=== PATIENT | female | born 1980 | race Caucasian/White ===

== ENCOUNTER 2023-02-20 21:55 | Emergency (ER) | payer BC ==
[2023-02-20] MEDS ORDERED: LIDOCAINE HCL/EPINEPHRINE 20 ML MDV ONE (22:14)
--- NOTE | 2023-02-20 23:28 | EDPHYS ---
Physician Documentation [facility] Name: Teodora Armstrong Age: 42 yrs Sex: Female : 1980 Arrival Date: 02/20/2023 Time: 21:55 Bed 13 Private MD: ED Physician Burton Eastman HPI: 02/20 23:37 This 42 yrs old Female presents to ER via Ambulatory with complaints of head injury. kb 23:37 The patient or guardian reports a laceration, 8 cm(s). The complaints affect the kb occipital area. Context of injury: The problem was sustained at home, resulted from a fall. Onset: The symptoms/episode began/occurred just prior to arrival. Associated signs and symptoms: Loss of consciousness: This patient did not experience any loss of consciousness. Pertinent positives: patient admits to or smells of alcohol consumption, Pertinent negatives: nausea, vomiting. Severity of symptoms: At their worst the symptoms were moderate, in the emergency department the symptoms are unchanged. The patient has not experienced similar symptoms in the past. The patient has not recently seen a physician. Pt states she went out with her significant other, had a few drinks and was dancing in their RV. States she fell and hit the back of her head on a corner of her desk. Denies loc. . 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 - Social history:: Smoking status: Patient reports the use of cigarette tobacco products, smokes one-half pack cigarettes per day. ROS: 22:02 Constitutional: Negative for fever, chills, and weight loss. kb 22:02 Skin: Positive for laceration(s), of the scalp. 22:02 All other systems are negative. Exam: 22:04 Constitutional: This is a well developed, well nourished patient who is awake, alert, kb and in no acute distress. Head/Face: Normocephalic, atraumatic. Eyes: Pupils equal round and reactive to light, extra-ocular motions intact. Lids and lashes normal. Conjunctiva and sclera are non-icteric and not injected. Cornea within normal limits. Periorbital areas with no swelling, redness, or edema. ENT: Moist Mucous membranes Cardiovascular: Regular rate and rhythm with a normal S1 and S2. No gallops, murmurs, or rubs. No pulse deficits. Respiratory: Respirations even and unlabored. No increased work of breathing. Talking in full sentences MS/ Extremity: Pulses equal, no cyanosis. Neurovascular intact. Full, normal range of motion. Neuro: Awake and alert, GCS 15, oriented to person, place, time, and situation. Moves all extremities. Normal gait. 23:23 Head/face: Noted is no obvious of injury or deformity except a laceration(s), that is kb superficial, 8 cm(s), of the left occipital area and right occipital area. Vital Signs: 22:01 BP 135 / 92; Pulse 109; Resp 15; Temp 97.4(O); Pulse Ox 100% on R/A; Weight 70.31 kg; mb9 Height 5 ft. 8 in. ; Pain 7/10; 23:13 BP 131 / 84; Pulse 91; Resp 16 S; Pulse Ox 100% on R/A; lg3 22:01 Body Mass Index 23.57 (70.31 kg, 172.72 cm) mb9 22:01 Pain Scale: Adult mb9 [place] Coma Score: 22:01 Eye Response: spontaneous(4). Motor Response: obeys commands(6). Verbal Response: mb9 oriented(5). Total: 15. 22:03 Eye Response: spontaneous(4). Motor Response: obeys commands(6). Verbal Response: kb oriented(5). Total: 15. 23:37 Eye Response: spontaneous(4). Motor Response: obeys commands(6). Verbal Response: kb oriented(5). Total: 15. Trauma Score (Adult): 22:01 Eye Response: spontaneous(1); Verbal Response: oriented(1); Motor Response: obeys mb9 commands(2); Systolic BP: > 89 mm Hg(4); Respiratory Rate: 10 to 29 per min(4); [place] Score: 15; Trauma Score: 12 22:01 Eye Response: spontaneous(1); Verbal Response: oriented(1); Motor Response: obeys mb9 commands(2); Systolic BP: > 89 mm Hg(4); Respiratory Rate: 10 to 29 per min(4); [place] Score: 15; Trauma Score: 12 Laceration: 23:23 Wound Repair of 8cm ( 3.1in ) subcutaneous laceration to occipital area. Irregularly kb shaped.. Skin/tissue flap noted.. Distal neuro/vascular/tendon intact. Anesthesia: Wound infiltrated with 10 mls of 1% lidocaine. Wound prep: Extensive cleansing with hibiclenz by me, Wound irrigation with saline by me. Skin closed with 17 1-0 Lee using simple sutures and sterile technique. Patient tolerated well. MDM: 21:57 Patient medically screened. kb 22:03 Differential diagnosis: Contusion of Hematoma on Laceration of Intracranial bleed- kb Concussion cerebral contusion. Data reviewed: vital signs, nurses notes. 23:39 Counseling: I had a detailed discussion with the patient and/or guardian regarding: the kb historical points, exam findings, and any diagnostic results supporting the discharge/admit diagnosis, radiology results, the need for outpatient follow up, a family practitioner, to return to the emergency department if symptoms worsen or persist or if there are any questions or concerns that arise at home. 02/20 21:57 Order name: CT Head C Spine kb 02/20 21:58 Order name: Dressing - Wound; Complete Time: 22:22 kb 02/20 21:58 Order name: Gloves, Sterile; Complete Time: 22:22 kb 02/20 21:58 Order name: Setup Suture Tray; Complete Time: 22:22 kb Administered Medications: 23:54 Drug: Tetanus-Diphtheria Toxoid IM Adult 0.5 ml {Forklift Driver: [place] (BUKA). lg3 Exp: 07/26/2023. Lot #: [id number]. } Route: IM; Site: right deltoid; 23:56 Follow up: Response: (VIS) Vaccine information sheet provided today. Questions and/or lg3 concerns addressed. VIS edition date: Feb 11, 2021.; No adverse reaction 23:56 Follow up: Response: No adverse reaction lg3 23:54 Drug: [place] PO 10 mg-325 mg 1 tabs Route: PO; lg3 23:56 Follow up: Response: No adverse reaction lg3 23:54 Drug: Cephalexin PO 500 mg Route: PO; lg3 23:56 Follow up: Response: No adverse reaction lg3 23:56 Drug: Lidocaine-Epinephrine Infiltration -1%: (1:100,000) 1 vials Volume: 20 ml; Route: lg3 Infiltration; Disposition Summary: 02/20/23 23:28 Discharge Ordered Location: Home kb Condition: Stable kb Diagnosis - Laceration without foreign body of scalp kb - Unspecified injury of head, initial encounter kb Followup: kb - With: Emergency Department - When: As needed - Reason: Worsening of condition Followup: kb - With: Private Physician - When: 2 - 3 days - Reason: Recheck today's complaints, Continuance of care, Re-evaluation by your physician Discharge Instructions: - Discharge Summary Sheet kb - Laceration Care, Adult, [id number] kb - Head Injury, Adult, [id number] kb Forms: - Medication Reconciliation Form kb - Thank You Letter kb - Antibiotic Education kb - Prescription Opioid Use kb - Patient Portal Instructions kb - Leadership Thank You Letter kb Prescriptions: - Cephalexin 500 mg Oral Capsule - take 1 capsule by ORAL route every 8 hours for 10 days; 30 capsule; Refills: 0, kb Product Selection Permitted Signatures: Dispatcher [employer] Jacquelyn Jiang, LUNG PULLER-C LUNG PULLER-Corina Rosario, RN RN lg3 Brandi Nair, RN RN mb9
--- NOTE | 2023-02-20 23:28 | ER ---
Nurse's Notes [facility] Name: Teodora Armstrong Age: 42 yrs Sex: Female : 1980 Arrival Date: 02/20/2023 Time: 21:55 Bed 13 Private MD: Diagnosis: Laceration without foreign body of scalp;Unspecified injury of head, initial encounter Presentation: 02/20 22:01 Chief complaint: Patient states: "I slipped on wet towels and fell and hit the back of mb9 my head on a metal desk." Pt denies LOC and taking blood thinners. Coronavirus screen: Vaccine status: Patient reports receiving the 2nd dose of the covid vaccine. Ebola Screen: No symptoms or risks identified at this time. Initial Sepsis Screen: Does the patient meet any 2 criteria? No. Patient's initial sepsis screen is negative. Does the patient have a suspected source of infection? No. Patient's initial sepsis screen is negative. Risk Assessment: Do you want to hurt yourself or someone else? Patient reports no desire to harm self or others. Onset of symptoms was February 20, 2023. 22:01 Method Of Arrival: Ambulatory mb9 22:01 Acuity: AKIL 3 mb9 Triage Assessment: 22:04 General: Appears uncomfortable, Behavior is calm, cooperative. Pain: Complains of pain mb9 in scalp Pain does not radiate. Pain currently is 7 out of 10 on a pain scale. Quality of pain is described as throbbing, Pain began suddenly, Is continuous. EENT: No signs and/or symptoms were reported regarding the EENT system. Neuro: [place] Agitation-Sedation Scale (RASS): 0 - Alert and Calm Level of Consciousness is awake, alert, obeys commands, Oriented to person, place, time, situation, Appropriate for age Pupils are PERRLA, Reports headache. Cardiovascular: Patient's skin is warm and dry. Respiratory: Airway is patent Respiratory effort is even, unlabored, Respiratory pattern is regular, symmetrical. GI: No signs and/or symptoms were reported involving the gastrointestinal system. : No signs and/or symptoms were reported regarding the genitourinary system. Derm: Skin is pink, warm \\T\\ dry. Musculoskeletal: Range of motion: intact in all extremities. Injury Description: Laceration sustained to scalp is clean, 7.6 to 20 cm long, not bleeding. 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 - Social history:: Smoking status: Patient reports the use of cigarette tobacco products, smokes one-half pack cigarettes per day. Screenin:57 [facility] ED Fall Risk Assessment (Adult) History of falling in the last 3 months, lg3 including since admission Yes- single mechanical fall (1 pt) Confusion or Disorientation No (0 pts) Intoxicated or Sedated Yes (3 pts) Impaired Gait No (0 pts) Mobility Assist Device Used No (0 pt) Altered Elimination No (0 pt) Score/Fall Risk Level 3 or more points = High Risk Oriented to surroundings, Maintained a safe environment, Educated pt \\T\\ family on fall prevention, incl call for assistance when getting out of bed, Provided non-skid footwear, Utilized family, sitter, or virtual electronic specialist as indicated. Abuse screen: Denies threats or abuse. Denies injuries from another. Nutritional screening: No deficits noted. Tuberculosis screening: No symptoms or risk factors identified. Assessment: 22:06 Reassessment: see triage assessment. mb9 22:27 Reassessment: pt taken to CT via wheelchair. mb9 23:13 General: Appears in no apparent distress. comfortable, Behavior is calm, cooperative. lg3 Pain: Complains of pain in scalp Pain currently is 4 out of 10 on a pain scale. Neuro: No deficits noted. [place] Agitation-Sedation Scale (RASS): 0 - Alert and Calm Level of Consciousness is awake, alert, obeys commands, Oriented to person, place, time, situation. Cardiovascular: No deficits noted. Denies chest pain, shortness of breath, Capillary refill < 3 seconds Clubbing of nail beds is absent JVD is absent Patient's skin is warm and dry. Respiratory: No deficits noted. Airway is patent Respiratory effort is even, unlabored, Respiratory pattern is regular, symmetrical. GI: No deficits noted. No signs and/or symptoms were reported involving the gastrointestinal system. : No deficits noted. No signs and/or symptoms were reported regarding the genitourinary system. EENT: No deficits noted. No signs and/or symptoms were reported regarding the EENT system. Derm: Skin is intact, is healthy with good turgor, Skin is dry, Skin is normal, Skin temperature is warm Wound noted occipital area. Musculoskeletal: No deficits noted. No signs and/or symptoms reported regarding the musculoskeletal system. Circulation, motion, and sensation intact. Range of motion: intact in all extremities. Injury Description: Laceration sustained to occipital area is clean, 2.6 to 7.5 cm long, bleeding moderately. 23:56 Reassessment: Patient appears in no apparent distress at this time. No changes from lg3 previously documented assessment. Patient and/or family updated on plan of care and expected duration. Pain level reassessed. Patient is alert, oriented x 3, equal unlabored respirations, skin warm/dry/pink. Vital Signs: 22:01 BP 135 / 92; Pulse 109; Resp 15; Temp 97.4(O); Pulse Ox 100% on R/A; Weight 70.31 kg; mb9 Height 5 ft. 8 in. ; Pain 7/10; 23:13 BP 131 / 84; Pulse 91; Resp 16 S; Pulse Ox 100% on R/A; lg3 22:01 Body Mass Index 23.57 (70.31 kg, 172.72 cm) mb9 22:01 Pain Scale: Adult mb9 [place] Coma Score: 22:01 Eye Response: spontaneous(4). Motor Response: obeys commands(6). Verbal Response: mb9 oriented(5). Total: 15. 22:03 Eye Response: spontaneous(4). Motor Response: obeys commands(6). Verbal Response: kb oriented(5). Total: 15. 23:37 Eye Response: spontaneous(4). Motor Response: obeys commands(6). Verbal Response: kb oriented(5). Total: 15. Trauma Score (Adult): 22:01 Eye Response: spontaneous(1); Verbal Response: oriented(1); Motor Response: obeys mb9 commands(2); Systolic BP: > 89 mm Hg(4); Respiratory Rate: 10 to 29 per min(4); [place] Score: 15; Trauma Score: 12 22:01 Eye Response: spontaneous(1); Verbal Response: oriented(1); Motor Response: obeys mb9 commands(2); Systolic BP: > 89 mm Hg(4); Respiratory Rate: 10 to 29 per min(4); [place] Score: 15; Trauma Score: 12 ED Course: 21:57 Patient arrived in ED. kb 21:57 [facility]C [facility] kb 21:57 Burton Eastman MD is Attending Physician. kb 22:01 Arm band placed on. mb9 22:04 Triage completed. mb9 22:06 Placed in gown. Bed in low position. Call light in reach. Side rails up X 1. Client mb9 placed on continuous cardiac and pulse oximetry monitoring. NIBP monitoring applied. 22:38 CT Head C Spine In Process Unspecified. EDMS 23:13 Corina Montgomery, RN is Primary Nurse. lg3 23:57 Assist provider with laceration repair on occipital area that was between 7.6 to 12.5 lg3 cm using lon. Set up tray. Performed by Jacquelyn HUGHES Patient tolerated well. Patient did not have IV access during this emergency room visit. 23:58 Provided Education on: wound care. lg3 Administered Medications: 23:54 Drug: Tetanus-Diphtheria Toxoid IM Adult 0.5 ml {Parts Sales Counterperson: IM5 (Cardiovascular Simulation). lg3 Exp: 07/26/2023. Lot #: [id number]. } Route: IM; Site: right deltoid; 23:56 Follow up: Response: (VIS) Vaccine information sheet provided today. Questions and/or lg3 concerns addressed. VIS edition date: Feb 11, 2021.; No adverse reaction 23:56 Follow up: Response: No adverse reaction lg3 23:54 Drug: [place] PO 10 mg-325 mg 1 tabs Route: PO; lg3 23:56 Follow up: Response: No adverse reaction lg3 23:54 Drug: Cephalexin PO 500 mg Route: PO; lg3 23:56 Follow up: Response: No adverse reaction lg3 23:56 Drug: Lidocaine-Epinephrine Infiltration -1%: (1:100,000) 1 vials Volume: 20 ml; Route: lg3 Infiltration; Medication: 23:58 Vaccine Information Statement (VIS) provided today. Questions and/or concerns lg3 addressed. VIS edition date: February 11, 2021. Outcome: 23:28 Discharge ordered by . charles 23:58 Discharged to home ambulatory, with significant other. lg3 23:58 Condition: stable 23:58 Discharge instructions given to patient, Instructed on discharge instructions, follow up and referral plans. medication usage, wound care, Demonstrated understanding of instructions, follow-up care, medications, wound care, Prescriptions given X 1. 23:59 Patient left the ED. lg3 Signatures: Dispatcher [employer] EDJacquelyn Puckett, DRIVER GUIDE-C WINSOME-Corina Rosario, RN RN lg3 Brandi Nair RN RN mb9
[2023-02-20] MEDS ORDERED: HYDROCODONE/APAP 10/325 TAB ONE (23:51)
[2023-02-20] MEDS ORDERED: CEPHALEXIN 250 MG CAP ONE (23:52)
[2023-02-20] MEDS ORDERED: TDAP (DIPHTH,PERTUSS(ACELL),TET VAC) 0.5 ML VIAL IMVAC ONE (23:52)
[2023-02-21 00:21] VITALS: TEMP 97.4; O2SAT 100
[2023-02-21 00:22] VITALS: BP 131/84
--- NOTE | 2023-02-21 11:17 | RAD REPORT ---
EXAM DESCRIPTION: CT - Head C Spine Mpr Wo Con - 02/21/2023 7:08 am CLINICAL HISTORY: 42 years Female TRAUMA COMPARISON: None TECHNIQUE: Images were obtained in axial, sagittal, and coronal planes. This exam was performed according to our departmental dose-optimization program which includes use of Automated Exposure Control, adjustment of the mA and/or kV according to patient size and/or use of i terative reconstruction technique. FINDINGS: CT brain: Ventricular system appears normal. No abnormal areas of increased attenuation se en. No extra-axial fluid collections noted. No evidence for skull fracture. Symmetric aeration of the mastoid air cells bilaterally. Unremarkable paranasal sinuses. CT cervical spine: Reversal normal cervical lordosis. Height of the vertebral bodies is intact. Satis factory alignment and articular facets. Moderate anterior osteophyte formation C5-6 level. Marginal s pur formation with neural foraminal narrowing bilaterally C5-C6. Intact odontoid and predental space. Prevertebral soft tissues appear normal. Intact occipital condyles. Intact C1. Posterior elements in tact on all levels. No abnormality in lung apices bilaterally. IMPRESSION: No acute intracranial abnormality. No evidence for hemorrhage, mass lesion, or large acu te infarction. No acute fracture or subluxation involving the cervical spine. Findings indicating muscle spasm. Dege nerative changes C5-6. Electronically signed by: Hanna Vega MD 02/20/2023 10:59 PM CDT Due to temporary technical issues with the PACS/Fluency reporting system, reports are being signed by the in house radiologist without review as a courtesy to ensure prompt reporting. The interpreting r adiologist is fully responsible for the content of the report.
== END 2023-02-20 23:59 | disposition home or self-care (01) ==
LOC: ER 21:55
PROC: 0HQ0XZZ Repair Scalp Skin, External Approach (ICD-10-PCS; principal; 2023-02-20)
DX: S01.01XA Laceration without foreign body of scalp, initial encounter (principal); F17.210 Nicotine dependence, cigarettes, uncomplicated; Z23 Encounter for immunization
CPT/HCPCS: 70450; 72125